=== PATIENT | male | born 1955 | race Caucasian/White ===

== ENCOUNTER → 2018-03-09 09:03 | Outpatient (CLI) | payer OTHER, SELFPAY ==
[2018-03-09 10:58] LABS: Add Manual Diff / Slide Review NO; Basophils Percent Auto 0.8 % (0-2); Eosinophils Percent Auto 2.4 % (2-4); Hematocrit 42.9 % (41-53); Hemoglobin 14.4 g/dL (13.5-17.5); Lymphocytes Percent Auto 23.3 % (25-40); Mean Corpuscular HGB Conc 33.5 % (30-36); Mean Corpuscular Hemoglobin 28.5 PG (26-34); Mean Corpuscular Volume 84.9 fL (80-100); Monocytes Percent Auto 10.5 % (3-14); Neutrophils Absolute Auto 4900 /uL (3000-5900); Platelet Count 269 X10^3/uL (150-400); Red Blood Cell Count 5.05 X10^6/uL (4.5-5.9); Red Cell Distribution Width 13.9 % (11.6-14.8); White Blood Cell Count 7.7 X10^3/uL (4.5-11.0)
[2018-03-09 12:14] LABS: HEMOLYSIS < 15 (0-50); Prostate Specific Antigen Scrn 1.83 ng/mL (0.1-4.0)
[2018-03-09 12:25] LABS: TSH w/ Reflex to FT4 4.41 uIU/mL (0.47-4.68)
[2018-03-09 12:27] LABS: Alanine Aminotransferase 49 IU/L (21-72); Albumin 4.5 g/dL (3.5-5.0); Albumin Globulin Ratio 1.5 (1.0-2.8); Alkaline Phosphatase 80 U/L (38-126); Aspartate Aminotransferase 43 IU/L (17-59); BUN Creatinine Ratio 12.7 (6-22); Bilirubin Total 0.5 mg/dL (0.2-1.3); Blood Urea Nitrogen 14 mg/dL (9-20); Calcium 9.1 mg/dL (8.4-10.2); Carbon Dioxide 25 mmol/L (22-32); Chloride 105 mmol/L (98-107); Cholesterol 209 mg/dL (140-199); Estimated Glomerular Filt Rate > 60.0 mL/min (>60); Globulin 3.1 g/dL (1.7-4.1); Glucose 101 mg/dL (80-110); HDL Cholesterol 32 mg/dL (40-60); LDL Cholesterol Calculated 131 mg/dL (<100); Potassium 4.2 mmol/L (3.4-5.1); Sodium 144 mmol/L (137-145); Total Protein 7.6 g/dL (6.3-8.2); Triglycerides 231 mg/dL (35-150)
== END ==
PROVIDERS: PCP Internal Medicine; Visit Provider Internal Medicine
DX: E66.9 Obesity, unspecified (principal); Z00.01 Encounter for general adult medical examination with abnormal findings
CPT/HCPCS: 36415; 80053; 80061; 84443; 85025; G0103

== ENCOUNTER → 2018-10-07 14:30 | Outpatient (CLI) | payer OTHER, SELFPAY ==
[2018-10-07 16:28] LABS: Cholesterol 214 mg/dL (140-199); HDL Cholesterol 36 mg/dL (40-60); LDL Cholesterol Calculated 131 mg/dL (<100); Triglycerides 234 mg/dL (35-150); Uric Acid 8.3 mg/dL (3.5-8.5)
== END ==
PROVIDERS: PCP Internal Medicine; Visit Provider Internal Medicine
DX: E78.00 Pure hypercholesterolemia, unspecified (principal); M10.00 Idiopathic gout, unspecified site
CPT/HCPCS: 36415; 80061; 84550

== ENCOUNTER 2020-04-06 17:25 | Emergency (ER) | payer MEDICARE, OTHER, SELFPAY ==
[2020-04-06] VITALS (7 sets, daily range): BP systolic 126–172; BP diastolic 62–95; PULSE 72–83; RESP 14–18; TEMP 36.6; O2SAT 91–97; BMI 32.1
--- NOTE | 2020-04-06 18:09 | ED.BACK ---
HPI - Back Pain/Injury General Chief Complaint: Back Pain/Injury Stated Complaint: Back pain, not able to stand Time Seen by Provider: 04/06/20 17:55 Source: patient Limitations: no limitations History of Present Illness HPI Narrative: Patient brought here by his neighbor. Family is out of town. Onset of right lower back pain started 5 days ago. Patient states he was doing yd work and was working and twisted his back and felt a pop. In the right lower back. Denies denies any radiating pain to the abdomen chest or the legs. No loss of bowel or bladder control. No numbness tingling weakness to legs or feet. History of lower back problems in the 1980s. No recent MRIs or surgeries never had surgeries on his back. Denies any history aortic dissection or aneurysms in the chest or abdomen. 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 Two days ago tried having a bowel movement but was too painful. Has been able to urinate. No saddle paresthesia. Today he felt spasm in right lower back again and he lowered himself to the ground and states that he did pass out. He did awake and fortunately his neighbor came over to visit defined him on the ground, he was awake. He got up and walked to the car with his neighbor to drive here. He is able to walk. Pain does not radiate to his legs or groin. No to his abdomen or chest or upper back. No headache. Related Data Previous Rx's Medication Instructions Recorded cyclobenzaprine 10 mg PO TID PRN #10 tab 04/06/20 hydrocodone-acetaminophen [[place]] 1 tab PO Q8H PRN #14 tab 04/06/20 Allergies Allergy/AdvReac Type Severity Reaction Status Date / Time No Known Drug Allergies Allergy Verified 04/06/20 17:42 Review of Systems Review of Systems Narrative: GENERAL: Denies chills, fatigue, malaise, fever, sweats. HEENT: Denies sinus pain, ear pain, sore throat, difficulty swallowing RESPIRATORY: Denies dyspnea, cough CARDIOVASCULAR: Denies chest pain, palpitations, edema, GASTROINTESTINAL: Denies nausea, vomiting, abdominal pain, diarrhea, constipation, melena. : Denies dysuria, frequency, hematuria MUSCULOSKELETAL: Complains of muscle pain. Denies any bony pain. SKIN: Denies rash, skin lesions NEUROLOGIC: Denies weakness, headache, numbness, change in speech, confusion PSYCHIATRIC: No SI or HI or hallucinations ROS Unobtainable: All systems reviewed & are unremarkable except as noted in HPI and below Patient History Social History Smoking Status: Never smoker Smoking Status: Never smoker alcohol intake frequency: 0-2 drinks per day Substance Use Type: does not use Exam Narrative Exam Narrative: GENERAL: patient appears stated age. Well-nourished, well-developed patient, in no distress, not toxic not dyspneic HEAD: Normocephalic. EYES: Pupils equal round and reactive. No scleral icterus. No injection no discharge ENT: Mucous membranes moist. No drooling no tongue elevation no trismus no malocclusion NECK: Trachea midline. Non tender CARDIOVASCULAR: Regular rate and rhythm without murmurs, gallops, or rubs. Strong bilateral femoral pulses as well as pedal pulses. Legs are warm soft and pink. RESPIRATORY: Clear to auscultation. Breath sounds equal bilaterally. No wheezes, rales, or rhonchi. GASTROINTESTINAL: Abdomen soft, non-tender, nondistended. Bowel sounds present no peritoneal signs. EXTREMITIES: No gross deformities. Legs warm soft and pink. BACK: Reproducible right paralumbar muscle tenderness and spasm. No no no midline tenderness or step-off. Limited range of motion in supine position due to pain at this time. Able to do straight leg raise and has pain at 60? with straining of the right knee. Unable to ambulate patient this time due to pain. Prefers to lay on his left side with hips and knees flexed NEURO: AOx4. Strong bilateral patellar reflexes as well as ankle flexion extension. Light touch intact to feet and toes. Wiggles toes. SKIN: Warm and dry PSYCH: Not anxious, is cooperative Initial Vital Signs Initial Vital Signs: Vital Signs Temperature 97.8 F 04/06/20 17:37 Pulse Rate 83 04/06/20 17:37 Respiratory Rate 18 04/06/20 17:37 Blood Pressure 172/95 H 04/06/20 17:37 Pulse Oximetry 97 04/06/20 17:37 Course Course Course Narrative: Pain control attained here. Blood pressure improved. Orders Ordered: ED Orders 04/06/20 19:39 CT abdomen pelvis wo con Stat Discontinued Medications Hydrocodone Bitart/Acetaminophen (Vicodin 5/325 Prepack) 1 bottle MISC SEEINSTR ONE Stop: 04/06/20 21:19 Last Admin: 04/06/20 21:21 Dose: 1 bottle Documented by: CAROLYNE Diazepam (Valium) 5 mg PO NOW ONE Stop: 04/06/20 19:14 Last Admin: 04/06/20 19:17 Dose: 5 mg Documented by: CAROLYNE Hydromorphone HCl (Dilaudid) 1 mg IM NOW ONE Stop: 04/06/20 18:09 Last Admin: 04/06/20 18:50 Dose: 1 mg Documented by: CAROLYNE Ketorolac Tromethamine (Toradol) 30 mg IM NOW ONE Stop: 04/06/20 18:10 Last Admin: 04/06/20 18:51 Dose: Not Given Documented by: CAROLYNE Ketorolac Tromethamine (Toradol) 30 mg IM NOW ONE Stop: 04/06/20 20:35 Last Admin: 04/06/20 20:37 Dose: 30 mg Documented by: CAROLYNE Ondansetron HCl (Zofran Odt) 4 mg SL NOW ONE Stop: 04/06/20 18:09 Last Admin: 04/06/20 18:50 Dose: 4 mg Documented by: CAROLYNE Reevaluation(s) Reevaluation #1: Pain improving. Blood pressure 127/62 it has improved with pain as well. Patient has a experienced truck driver. He desires discharge home. Reviewed CT scan results with him. And follow-up as well. And no operating machinery Time: 21:15 Vital Signs Vital signs: Vital Signs - 8 hr 04/06/20 17:37 04/06/20 19:20 04/06/20 19:21 Temperature 97.8 F Pulse Rate 83 77 Respiratory Rate 18 Blood Pressure 172/95 H 135/87 Pulse Oximetry 97 94 04/06/20 19:30 04/06/20 20:00 04/06/20 20:41 Temperature Pulse Rate 75 75 72 Respiratory Rate 14 Blood Pressure 138/77 126/64 137/73 Pulse Oximetry 91 93 93 04/06/20 21:00 Temperature Pulse Rate 79 Respiratory Rate Blood Pressure 127/62 Pulse Oximetry 95 MDM - Back Pain/Injury Differential Diagnosis Differential diagnosis: Likely lumbar radiculopathy, sciatica, strain of lumbar region, AAA and other (Renal stone/muscle spasm/muscle strain) Imaging Data CT scan - abdomen/pelvis: Radiologist's Impression: [address] [address] [address] Scan Report Signed Patient: Alexander Bobby [facility]#: [id number] : 4Acct:[id number] Age/Sex: 64 / MDate of Service: 04/06/20 Loc: ED Accession Number: [id number] Procedure: CT abdomen pelvis wo con Ordering Provider: Akbar Calhoun MD PROCEDURE: CT ABDOMEN PELVIS WO CON INDICATIONS: Right flank pain/back pain TECHNIQUE: Noncontrast 5 mm thick sections acquired from the diaphragms to the symphysis. 5 mm coronal and sagittal reformats were then performed. For radiation dose reduction, the following was used: automated exposure control, adjustment of mA and/or kV according to patient size. COMPARISON: None. FINDINGS: Image quality: Excellent. ABDOMEN: Lung bases: Lung bases are clear. Small calcified granuloma. Small calcified left infrahilar lymph node. No pleural effusion. Minimal bibasilar atelectasis. Heart size is normal. Solid organs: Liver is normal in size. Hepatic steatosis. Gallbladder is unremarkable. Pancreas is normal in contours. Spleen is normal in size. Small calcified splenic granuloma. No adrenal nodules. Kidneys are normal in size, without hydronephrosis or nephrolithiasis. Small cortical hypodensity in the right kidneys which are too small to further characterize. Peritoneum and bowel: Unenhanced bowel loops demonstrate normal wall thickness and caliber. Diverticulosis. Normal appendix. No free fluid or air. Nodes and vessels: No retroperitoneal or mesenteric adenopathy by size criteria. Aorta and inferior vena cava are normal in caliber. Miscellaneous: No ventral hernias. Mild stranding in the subcutaneous lower abdominal wall. PELVIS: Genitourinary: Bladder wall thickness is normal. Prostatomegaly. Median lobe hypertrophy. Prosthetic calcifications. Miscellaneous: No inguinal hernias or adenopathy. Bones: No suspicious bony lesions. Multilevel DDD. No vertebral body compression fractures. IMPRESSION: 1. No kidney stones. No hydronephrosis. 2. No acute inflammatory process identified. No free fluid. 3. Diverticulosis without diverticulitis. 4. Prior granulomatous process. 5. Hepatic steatosis. Dictated by: Neil Tripathi M.D. on 04/06/2020 at 20:29 Approved by: Neil Tripathi M.D. on 04/06/2020 at 20:35 MDM Narrative Medical decision making narrative: No labs indicated this time. Mechanism of injury noted and clinically relevant. CT scan ordered to also evaluate for possible kidney stone, was able to visualize aorta as well. Appropriate for discharge home. No neuro complaints. Discharge Plan Departure Patient Disposition: Home Clinical Impression: Strain of lumbar region Qualifiers: Encounter type: initial encounter Qualified Code(s): S39.012A - Strain of muscle, fascia and tendon of lower back, initial encounter Discharge Date/Time: 04/06/20 21:25 Instructions: DI for Back Spasm, DI for Back Strain or Sprain Activity Restrictions/Additional Instructions: No driving or operating machinery until seen by family doctor. Will need to schedule MRI of the lower back with family doctor. Return if worse or if any questions or concerns or if any numbness tingling or weakness to the legs or feet. Prescriptions: New cyclobenzaprine 10 mg tablet 10 mg PO TID PRN (Reason: muscle spasm) Qty: 10 RF: 0 hydrocodone-acetaminophen [[place]] 7.5-325 mg tablet 1 tab PO Q8H PRN (Reason: pain) Qty: 14 RF: 0 Referrals: Kain Contreras MD [Primary Care Provider] -
[2020-04-06] MEDS: ONDANSETRON 4 MG ODT SL (18:50)
[2020-04-06] MEDS: HYDROMORPHONE 1 MG INJ IM (18:50)
[2020-04-06] MEDS: diazePAM 5 MG TABLET PO (19:17)
--- NOTE | 2020-04-06 19:39 | DI.CT.S_ITS ---
PROCEDURE: CT ABDOMEN PELVIS WO CON INDICATIONS: Right flank pain/back pain TECHNIQUE: Noncontrast 5 mm thick sections acquired from the diaphragms to the symphysis. 5 mm coronal and sagittal reformats were then performed. For radiation dose reduction, the following was used: automated exposure control, adjustment of mA and/or kV according to patient size. COMPARISON: None. FINDINGS: Image quality: Excellent. ABDOMEN: Lung bases: Lung bases are clear. Small calcified granuloma. Small calcified left infrahilar lymph node. No pleural effusion. Minimal bibasilar atelectasis. Heart size is normal. Solid organs: Liver is normal in size. Hepatic steatosis. Gallbladder is unremarkable. Pancreas is normal in contours. Spleen is normal in size. Small calcified splenic granuloma. No adrenal nodules. Kidneys are normal in size, without hydronephrosis or nephrolithiasis. Small cortical hypodensity in the right kidneys which are too small to further characterize. Peritoneum and bowel: Unenhanced bowel loops demonstrate normal wall thickness and caliber. Diverticulosis. Normal appendix. No free fluid or air. Nodes and vessels: No retroperitoneal or mesenteric adenopathy by size criteria. Aorta and inferior vena cava are normal in caliber. Miscellaneous: No ventral hernias. Mild stranding in the subcutaneous lower abdominal wall. PELVIS: Genitourinary: Bladder wall thickness is normal. Prostatomegaly. Median lobe hypertrophy. Prosthetic calcifications. Miscellaneous: No inguinal hernias or adenopathy. Bones: No suspicious bony lesions. Multilevel DDD. No vertebral body compression fractures. IMPRESSION: 1. No kidney stones. No hydronephrosis. 2. No acute inflammatory process identified. No free fluid. 3. Diverticulosis without diverticulitis. 4. Prior granulomatous process. 5. Hepatic steatosis. Dictated by: Neil Tripathi M.D. on 04/06/2020 at 20:29 Approved by: Neil Tripathi M.D. on 04/06/2020 at 20:35
[2020-04-06] MEDS: KETOROLAC 60 MG/2 ML VIAL 30 MG IM (20:37)
[2020-04-06] MEDS: HYDROCODONE/ACET 5/325 PREPACK 1 BOTTLE MISC (21:21)
== END 2020-04-06 21:25 | disposition home or self-care (01) ==
PROVIDERS: Emergency Provider Emergency Medicine; PCP Internal Medicine
DX: S39.012A Strain of muscle, fascia and tendon of lower back, initial encounter (principal); M62.830 Muscle spasm of back
CPT/HCPCS: 74176; 96372; 99284; J1170; J1885

== ENCOUNTER → 2020-05-13 10:33 | Outpatient (CLI) | payer MEDICARE, OTHER, SELFPAY ==
[2020-05-13 12:50] LABS: Add Manual Diff / Slide Review NO; Basophils Absolute Auto 100 /uL (0-100); Basophils Percent Auto 0.8 % (0-2); Eosinophils Absolute Auto 100 /uL (0-450); Eosinophils Percent Auto 1.5 % (2-4); Hematocrit 43.7 % (41-53); Hemoglobin 14.3 g/dL (13.5-17.5); Lymphocytes Absolute Auto 1800 /uL (1100-4500); Lymphocytes Percent Auto 22.8 % (25-40); Mean Corpuscular HGB Conc 32.8 % (30-36); Mean Corpuscular Hemoglobin 28.4 PG (26-34); Mean Corpuscular Volume 86.4 fL (80-100); Monocytes Absolute Auto 600 /uL (0-900); Monocytes Percent Auto 8.1 % (3-14); Neutrophils Absolute Auto 5300 /uL (1500-7000); Neutrophils Percent Auto 66.8 % (50-75); Platelet Count 248 X10^3/uL (150-400); Red Blood Cell Count 5.06 X10^6/uL (4.5-5.9); Red Cell Distribution Width 14.4 % (11.6-14.8); White Blood Cell Count 7.9 X10^3/uL (4.5-11.0)
[2020-05-13 13:02] LABS: Alanine Aminotransferase 59 IU/L (<50); Albumin 4.5 g/dL (3.5-5.0); Albumin Globulin Ratio 1.5 (1.0-2.8); Alkaline Phosphatase 79 U/L (38-126); Aspartate Aminotransferase 51 IU/L (17-59); BUN Creatinine Ratio 19.4 (6-22); Bilirubin Total 0.9 mg/dL (0.2-1.3); Blood Urea Nitrogen 18 mg/dL (9-20); Calcium 9.4 mg/dL (8.4-10.2); Carbon Dioxide 27 mmol/L (22-32); Chloride 104 mmol/L (98-107); Cholesterol 264 mg/dL (140-199); Estimated Glomerular Filt Rate > 60.0 mL/min (>60); Globulin 3.1 g/dL (1.7-4.1); Glucose 187 mg/dL (80-110); HDL Cholesterol 41 mg/dL (40-60); HEMOLYSIS < 15 (0-50); LDL Cholesterol Calculated 177 mg/dL (<100); Sodium 137 mmol/L (137-145); Total Protein 7.6 g/dL (6.3-8.2); Triglycerides 231 mg/dL (35-150); Uric Acid 9.2 mg/dL (3.5-8.5)
[2020-05-13 13:32] LABS: Prostate Specific Antigen Scrn 1.96 ng/mL (0.1-4.0)
== END ==
PROVIDERS: PCP Internal Medicine; Referring Provider Internal Medicine; Visit Provider Internal Medicine
DX: M15.0 Primary generalized (osteo)arthritis (principal); E78.2 Mixed hyperlipidemia; M10.00 Idiopathic gout, unspecified site; M54.5 Low back pain; Z12.5 Encounter for screening for malignant neoplasm of prostate
CPT/HCPCS: 36415; 80053; 80061; 84550; 85025; G0103

== ENCOUNTER → 2020-06-21 10:33 | Outpatient (CLI) | payer MEDICARE, OTHER, SELFPAY ==
[2020-06-21 11:48] LABS: Add Manual Diff / Slide Review NO; Basophils Absolute Auto 100 /uL (0-100); Basophils Percent Auto 0.8 % (0-2); Eosinophils Absolute Auto 100 /uL (0-450); Eosinophils Percent Auto 1.4 % (2-4); Hematocrit 44.8 % (41-53); Lymphocytes Absolute Auto 2100 /uL (1100-4500); Lymphocytes Percent Auto 26.3 % (25-40); Mean Corpuscular HGB Conc 33.6 % (30-36); Mean Corpuscular Hemoglobin 28.8 PG (26-34); Mean Corpuscular Volume 85.7 fL (80-100); Monocytes Absolute Auto 700 /uL (0-900); Monocytes Percent Auto 8.7 % (3-14); Neutrophils Absolute Auto 4900 /uL (1500-7000); Neutrophils Percent Auto 62.8 % (50-75); Platelet Count 255 X10^3/uL (150-400); Red Blood Cell Count 5.22 X10^6/uL (4.5-5.9); Red Cell Distribution Width 14.5 % (11.6-14.8); White Blood Cell Count 7.8 X10^3/uL (4.5-11.0)
[2020-06-21 11:58] LABS: Hemoglobin A1C% w Est Avg Glu 6.1 % (4.0-6.0)
[2020-06-21 12:06] LABS: BUN Creatinine Ratio 15.1 (6-22); Blood Urea Nitrogen 13 mg/dL (9-20); Calcium 9.4 mg/dL (8.4-10.2); Carbon Dioxide 27 mmol/L (22-32); Chloride 104 mmol/L (98-107); Estimated Glomerular Filt Rate > 60.0 mL/min (>60); Glucose 117 mg/dL (80-110); HEMOLYSIS < 15 (0-50); Potassium 4.1 mmol/L (3.4-5.1); Sodium 138 mmol/L (137-145)
== END ==
PROVIDERS: PCP Internal Medicine; Referring Provider Orthopaedic Surgery; Visit Provider Orthopaedic Surgery
DX: Z01.818 Encounter for other preprocedural examination (principal); Z01.812 Encounter for preprocedural laboratory examination; R73.9 Hyperglycemia, unspecified
CPT/HCPCS: 36415; 80048; 83036; 85025; 93005

== ENCOUNTER → 2020-08-12 10:02 | Outpatient (CLI) | payer MEDICARE, OTHER, SELFPAY ==
[2020-08-12 11:35] LABS: BUN Creatinine Ratio 15.5 (6-22); Blood Urea Nitrogen 15 mg/dL (9-20); Calcium 9.7 mg/dL (8.4-10.2); Carbon Dioxide 29 mmol/L (22-32); Chloride 102 mmol/L (98-107); Estimated Glomerular Filt Rate > 60.0 mL/min (>60); Glucose 124 mg/dL (80-110); HEMOLYSIS < 15 (0-50); Potassium 3.9 mmol/L (3.4-5.1); Sodium 138 mmol/L (137-145)
== END ==
PROVIDERS: PCP Internal Medicine; Referring Provider Specialist; Visit Provider Specialist
DX: R94.4 Abnormal results of kidney function studies (principal)
CPT/HCPCS: 36415; 80048

== ENCOUNTER → 2020-08-15 12:28 | Outpatient (CLI) | payer MEDICARE, OTHER, SELFPAY ==
--- NOTE | 2020-08-15 12:32 | DI.CT.S_ITS ---
PROCEDURE: CT ABDOMEN PELVIS WO/W CON INDICATIONS: hematuria TECHNIQUE: Optional 5 mm thick noncontrast images acquired from the diaphragm to the symphysis pubis. After the administration of intravenous contrast, 5 mm thick images acquired from the diaphragm to the symphysis pubis after a 10-minute delay. 2 mm thick coronal and sagittal reformats were then performed of the kidneys and ureters. For radiation dose reduction, the following was used: automated exposure control, adjustment of mA and/or kV according to patient size. COMPARISON: [facility], CT, CT ABDOMEN PELVIS WO CON, 04/06/2020, 20:00. FINDINGS: Image quality: Excellent. Lung bases: There are small calcified nodules redemonstrated within the lung bases consistent with sequelae of old granulomas disease. Mild dependent atelectasis is present in the right lower lobe. Heart size is normal. Urinary system: Kidneys demonstrate no nephrolithiasis or hydronephrosis. Minimal nonspecific perinephric stranding is redemonstrated. There is a small right renal cyst. There is normal bilateral renal enhancement. Renal calyces appear normal in morphology when filled with contrast without suspicious filling defects. Opacified portions of both ureters demonstrate normal caliber without filling defects. No calcified bladder stones. There is slight bladder wall thickening and trabeculation suggesting sequelae of chronic bladder outlet obstruction. There is moderate heterogeneous enlargement of the prostate. Other solid organs: Evaluation of the liver demonstrates no focal hepatic lesions. The gallbladder appears within normal limits without calcified gallstones. Biliary system is non-dilated. Pancreas enhances normally. No peripancreatic fat stranding or fluid collections. No pancreatic duct dilatation. The spleen is normal in size. Multiple splenic calcifications are redemonstrated consistent with sequelae of old granulomas disease. No adrenal nodules. Peritoneum and bowel: Bowel loops demonstrate normal wall thickness and caliber. The appendix is normal in appearance. There is colonic diverticulosis without acute diverticulitis. No free fluid or air. Nodes and vessels: No retroperitoneal or mesenteric adenopathy by size criteria. Aorta and inferior vena cava are normal in size. Abdominal wall: No ventral hernias. Pelvis: No pathologic free pelvic fluid. No inguinal hernias or adenopathy. Bones: No suspicious bony lesions. No vertebral body compression fractures. IMPRESSION: 1. No evidence of nephrolithiasis or suspicious filling defects within the renal collecting systems. 2. Slight bladder wall thickening and trabeculation suggesting sequelae of chronic bladder outlet obstruction. There is moderate heterogeneous enlargement of the prostate. 3. Colonic diverticulosis. Dictated by: Alexander Lawrence M.D. on 08/15/2020 at 14:01 Approved by: Alexander Lawrence M.D. on 08/15/2020 at 14:10
--- NOTE | 2020-08-15 12:32 | DI.US.S_ITS ---
PROCEDURE: US SCROTUM INDICATIONS: Abnormal exam TECHNIQUE: Real-time scanning was performed of the scrotum and testicles, with image documentation. Color and pulse Doppler interrogation was performed of both testicles. COMPARISON: None. FINDINGS: Right: Testicle is normal in size at 2.1 x 3.3 x 4.8 cm, and homogenous in echotexture. Epididymis is normal in overall size and morphology. No significant hydrocele or varicoceles. Overlying scrotal skin is normal in thickness. Left: Testicle is normal in size at 1.7 x 3.1 x 4.3 cm, and homogeneous in echotexture. Epididymis is normal in overall size and morphology. No significant hydrocele or varicoceles. Overlying scrotal skin is normal in thickness. There is a left at that intimal cyst at the head of the epididymis measuring only 4 mm in diameter. Doppler: Color and pulse Doppler demonstrate normal and symmetric arterial flow in both testicles. IMPRESSION: No sign of testicular torsion, or underlying orchitis or epididymitis. No suspicion for presence of testicular neoplasm. Dictated by: Vinny Ford M.D. on 08/15/2020 at 16:08 Approved by: Vinny Ford M.D. on 08/15/2020 at 16:10
== END ==
PROVIDERS: PCP Internal Medicine; Referring Provider Specialist; Visit Provider Specialist
DX: R31.9 Hematuria, unspecified (principal); R68.89 Other general symptoms and signs; N40.0 Benign prostatic hyperplasia without lower urinary tract symptoms; K57.90 Diverticulosis of intestine, part unspecified, without perforation or abscess without bleeding
CPT/HCPCS: 74178; 76870; Q9967

== ENCOUNTER → 2020-09-02 09:24 | Outpatient (CLI) | payer MEDICARE, OTHER, SELFPAY ==
[2020-09-02 13:17] LABS: COVID19 -Nasal RAPID Negative (Negative)
== END ==
PROVIDERS: PCP Internal Medicine; Visit Provider Surgery
DX: Z20.822 Contact with and (suspected) exposure to COVID-19 (principal)
CPT/HCPCS: 87635; C9803

== ENCOUNTER 2020-09-03 07:30 | Day surgery (SDC) | payer MEDICARE, OTHER, SELFPAY ==
[2020-09-03] VITALS (9 sets, daily range): BP systolic 87–133; BP diastolic 57–78; PULSE 70–86; RESP 12–20; TEMP 36.4–36.7; O2SAT 93–97; BMI 30.7
[2020-09-03] MEDS: SODIUM CHLORIDE 0.9% 1,000 ML 200 ML IV (07:49)
--- NOTE | 2020-09-03 08:17 | PM.HP.1 ---
History of Present Illness History of Present Illness Date Patient Seen: 09/03/20 Time Patient Seen: 08:17 Chief complaint: SCREENING COLONOSCOPY Narrative: This is a 64-year-old man here for follow-up colonoscopy. His last colonoscopy was 5 years ago, and he is getting them every 5 years due to family history. His father from colon cancer at age 55. He has had at least 1 polyp found on a prior scope, but nothing found on his most recent colonoscopy 5 years ago. He denies any new symptoms of melena, hematochezia, unexplained abdominal pain, unexplained weight loss. He says he is otherwise in good health, and recently had a knee replacement. ROS Thirteen system review is otherwise negative other than as mentioned below and in HPI. PE: GENERAL: Well groomed and cooperative. Appears stated age. Answers questions promptly and appropriately. Vital signs noted. HENT: Normocephalic, atraumatic. Hearing intact. EYES: Conjunctiva pink, sclera white, no periorbital swelling. CARDIOVASCULAR: Regular rate. No pedal edema. RESPIRATORY: Non-tachypneic, breathing comfortably on room air. GASTROINTESTINAL: Abdomen soft and non-distended GENITALURINARY: No flank tenderness. MUSCULOSKELETAL: Equal tone and mass bilaterally. SKIN: Warm, dry, soft, appropriate color for ethnicity. No other lesions, rashes, or wounds. NEURO: Alert and Oriented X 3. No gross sensory deficits, or cognitive issues. PSYCH: Appropriate affect and mood. Patient History Medical History (Updated 09/03/20 @ 08:18 by Veronica Rachel MD) BPH w urinary obs/LUTS Diverticulosis Family history of colon cancer Family history of prostate cancer Gout Hepatic steatosis History of lung cancer (~2009) Lung cancer Microscopic hematuria Surgical History History of knee replacement Family & Social History Family History Grandmother Cancer Grandfather Gout Brother Hearing impairment Kidney stone Social History: household members spouse Tobacco & Substance use: Smoking Status Never smoker alcohol intake current alcohol intake frequency holiday/special occasion Substance Use Type does not use Meds Home Medications and Allergies Home Medications Medication Instructions Recorded Confirmed Type acetaminophen 500 mg capsule 500 mg PO Q6H PRN 08/05/20 09/03/20 History allopurinol 300 mg tablet 300 mg PO DAILY 08/05/20 09/03/20 History atorvastatin 40 mg tablet 40 mg PO DAILY 08/05/20 09/03/20 History diclofenac sodium 75 mg 75 mg PO BID 08/05/20 09/03/20 History tablet,delayed release tamsulosin 0.4 mg capsule 0.4 mg PO BID cap 08/05/20 09/03/20 History Allergies Allergy/AdvReac Type Severity Reaction Status Date / Time No Known Drug Allergies Allergy Verified 09/03/20 07:49 Exam Vital Signs (past 8 hours): - 09/03/20 07:57 Temperature 97.7 F Pulse Rate 86 Respiratory Rate 14 Blood Pressure 133/78 Pulse Oximetry 95 Oxygen Delivery Method Room Air Assessment & Plan Assessment and plan (1) Family history of colon cancer in father: Status: Acute (2) Personal history of colonic polyps: Status: Acute Assessment & Plan narrative: Risks and benefits of screening colonoscopy and possible polypectomy were discussed with the patient including risk of bleeding, perforation, need for additional procedures, risks of anesthesia. The patient desires to proceed with the colonoscopy procedure. COVID-19 COVID-19 status: Negative Result date/Date tested (Pos, Neg/Pending): 09/02/20 Time Spent With Patient Time with patient: 15-24 minutes Quality MIPS - Admit Advanced Care Plan / Current Medications Measures: #47 ? Advanced Care Plan Clinician documentation instruction: document at admission. [] I confirmed that the patient's Advance Care Plan is present, code status is documented, or surrogate decision maker is listed in the patient?s medical record. [SATISFIES MIPS PERFORMANCE] If Yes, Stop Here [] The patient?s Advance Care plan is not present because: (select) [MIPS PERFORMANCE EXCEPTION/EXCLUSION] [] I confirmed today that the patient does not wish or was not able to name a surrogate decision maker or provide an Advance Care Plan. [] Hospice care is currently being provided or has been provided this calendar year [] I did NOT confirm today the presence of an Advance Care Plan or surrogate decision maker documented within the patient's medical record. [DOES NOT SATISFY MIPS PERFORMANCE] #130 - Documentation of Current Medications in the Medical Record Clinician documentation instruction: use macro the first time you see a patient. [] I have utilized all available immediate resources to obtain, update, or review the patient?s current medications. [SATISFIES MIPS PERFORMANCE] If Yes, Stop Here [] The patient is not eligible for medication reconciliation; the patient is in an emergent medical situation where delaying treatment would jeopardize the patient?s health. [MIPS PERFORMANCE EXCEPTION/EXCLUSION] [] I did NOT confirm, update or review the patient's current list of medications today. [DOES NOT SATISFY MIPS PERFORMANCE] MIPS - CL Central Venous Catheter Placement Measure: #76 ? Prevention of Central Venous Catheter (CVC) ? Related Bloodstream Infection Clinician documentation instruction: use macro every time you place a central line. [] All elements of Maximal Sterile Barrier Technique, including hand hygiene, skin prep, and sterile ultrasound technique (if used) were followed. [SATISFIES MIPS PERFORMANCE] If Yes, Stop Here [] If ?No?, the medical reason all elements were NOT used for medical reason [] (ex. emergent condition). [] Maximal Sterile Barrier Technique was not followed, no reason provided [DOES NOT SATISFY MIPS PERFORMANCE] MIPS - DC Heart Failure Measures: #5 - Heart Failure (HF): Angiotensin-Converting Enzyme (FABI) Inhibitor or Angiotensin Receptor Sophia (ARB) Therapy for Left Ventricular Systolic Dysfunction (LVSD) and #8 - Heart Failure (HF): Beta-Sophia Therapy for Left Ventricular Systolic Dysfunction (LVSD) Clinician documentation instruction: use macro at every CHF discharge. [] The patient has current or prior documentation of left ventricular ejection fraction (LVEF) less than 40%, or moderate or severely depressed left ventricular systolic function. Answer both: [SATISFIES MIPS PERFORMANCE] [] The patient was prescribed or already taking an Angiotensin-Converting Enzyme (FABI) Inhibitor, or Angiotensin Receptor Sophia (ARB). [] The patient was prescribed or already taking a beta-sophia. If Yes to Both, Stop Here [] Patient not prescribed/taking: [MIPS PERFORMANCE EXCEPTION/EXCLUSION] [] FABI or ARB for medical/patient/system reason(s) including [] (ex. allergy, intolerance, contraindication) [] Beta-sophia for medical/patient/system reason(s) including [] (ex. allergy, intolerance, contraindication) [] Patient not prescribed/taking: [DOES NOT SATISFY MIPS PERFORMANCE] [] FABI or ARB, no reason given [] Beta-sophia, no reason given
--- NOTE | 2020-09-03 08:19 | P.OP.ENDO_ITS ---
Operative Date/Time/Diagnoses Date of procedure: 09/03/20 Time of procedure: 08:19 Pre-op diagnosis: High risk family history, personal history colon polyps, due for surveillance colonoscopy Post-op diagnosis: other (No polyps found on today's exam) Procedure & Clinicians Study performed: Colonoscopy Procedural sedation performed by the endoscopist Same procedure as scheduled: Yes Indications: Personal history colon polyps, high risk family history for colon cancer Surgeon: Veronica Rachel Procedure Notes SCOAP/Timeout: Performed Procedure in detail: The patient was brought to the room and placed in left lateral decubitus position with all bony prominences padded. A time-out was performed and then the patient was given procedural sedation starting with 4 mg of Versed and 10 mcg of fentanyl. Total of 6 mg of Versed and 150 micro g of fentanyl were given for the entire procedure. Vitals were monitored throughout the procedure and remained stable. Once adequately sedated, the procedure was begun. A rectal exam was performed revealing no abnormalities. The colonoscope was then introduced to the rectum and advanced to the cecum in the usual fashion.]The cecum was identified by the appendiceal orifice, the mucosal tri- fold, and the ileocecal valve. The scope was then retracted while rotating side to side and examining each mucosal fold. Moderate diverticulosis was seen in the descending and sigmoid colon. No polyps or other abnormalities were found on today's exam. At the conclusion of the procedure retroflexion was performed and small grade 1-2 internal hemorrhoids without stigmata of bleeding were seen. The scope was then withdrawn from the rectum the procedure was concluded. The patient tolerated the procedure well and was transferred to the PACU in stable condition. Scope withdrawal time: 7 Sedation minutes: 17 Findings: diverticulosis Specimen(s): none sent Complications: none Impression: Moderate diverticulosis. No polyps found on today's exam Post-procedure Recommendations: Colonscopy in 5 years (Due to family history) Follow up: as needed Disposition: PACU
[2020-09-03] MEDS: fentaNYL 250 MCG/5 ML INJ IV (08:24)
[2020-09-03] MEDS: MIDAZOLAM 5 MG/5 ML VIAL IV (08:24)
--- NOTE | 2020-09-03 09:03 | SUR.PHASEI ---
Slow to wake, stable
--- NOTE | 2020-09-03 09:11 | SUR.PHASEI ---
Still sleepy, 02 placed back on now weaned off.
== END 2020-09-03 10:10 | disposition home or self-care (01) ==
PROVIDERS: PCP Internal Medicine; Referring Provider Internal Medicine; Visit Provider Surgery
PROC: 0DJD8ZZ Inspection of Lower Intestinal Tract, Via Natural or Artificial Opening Endoscopic (ICD-10-PCS; CPT 45378; principal; 2020-09-03 08:30)
DX: Z12.11 Encounter for screening for malignant neoplasm of colon (principal); Z80.0 Family history of malignant neoplasm of digestive organs; Z86.010 Personal history of colon polyps; K57.30 Diverticulosis of large intestine without perforation or abscess without bleeding; K64.0 First degree hemorrhoids
CPT/HCPCS: G0105; 99152; J2250; J3010

== ENCOUNTER 2020-12-08 11:28 | Emergency (ER) | payer MEDICARE, OTHER, SELFPAY ==
[2020-12-08] VITALS (7 sets, daily range): BP systolic 122–129; BP diastolic 67–96; PULSE 60–86; RESP 16; TEMP 36.7; O2SAT 95–98; BMI 31.9
--- NOTE | 2020-12-08 12:14 | DI.RAD.S_ITS ---
PROCEDURE: XR TIBIA FIBULA LT 2V INDICATIONS: injury TECHNIQUE: 2 views of the tibia and fibula were acquired. COMPARISON: None. FINDINGS: Bones: No fractures or dislocations. No suspicious bony lesions. Soft tissues: No suspicious soft tissue calcifications or masses. IMPRESSION: No evidence acute bony abnormality of the left tibia and fibula Dictated by: Judd Samaniego M.D. on 12/08/2020 at 12:09 Approved by: Judd Samaniego M.D. on 12/08/2020 at 12:10
[2020-12-08] MEDS: TET,DIPH,PERTUSS(ACELL),VAC/PF 0.5 ML SYRINGE IM (16:59)
--- NOTE | 2020-12-08 17:03 | ED.SKABFB ---
HPI - Skin/Abscess/Foreign Bdy General Chief complaint: Skin/Abscess/Foreign Body Stated complaint: Puncture Wound on Left Sharp, Swelling Time Seen by Provider: 12/08/20 17:03 Source: patient Mode of arrival: Ambulatory Limitations: no limitations History of Present Illness HPI narrative: This is a 64-year-old male comes emergency department with complaint puncture wound to his left sharp. Patient was using a pickaxe to chip away at some roots of a tree when he missed judged his placement and punctured his left calf. Patient states he had some swelling and had active bleeding from the sites for period of time. patient denies any numbness, tingling or weakness. He has had normal sensation throughout. He denies any blood thinners. Patient states his pain is fairly well controlled. He states his swelling has take medication for dyslipidemia as well as gout. his tetanus was updated here in the department. Related Data Home Medications Medication Instructions Recorded Confirmed acetaminophen 500 mg capsule 500 mg PO Q6H PRN 08/05/20 11/06/20 allopurinol 300 mg tablet 300 mg PO DAILY 08/05/20 11/06/20 atorvastatin 40 mg tablet 40 mg PO DAILY 08/05/20 11/06/20 diclofenac sodium 75 mg 75 mg PO BID 08/05/20 11/06/20 tablet,delayed release tamsulosin 0.4 mg capsule 0.4 mg PO BID cap 08/05/20 11/06/20 Previous Rx's Medication Instructions Recorded amoxicillin-pot clavulanate 1 tab PO Q12H #20 tab 12/08/20 [Augmentin] Allergies Allergy/AdvReac Type Severity Reaction Status Date / Time No Known Drug Allergies Allergy Verified 11/06/20 10:21 Review of Systems Review of Systems ROS Unobtainable: All systems reviewed & are unremarkable except as noted in HPI and below Patient History Medical History BPH w urinary obs/LUTS Diverticulosis Family history of colon cancer Family history of prostate cancer Gout Hepatic steatosis History of lung cancer (~2009) Lung cancer Microscopic hematuria Surgical History History of knee replacement Family History Grandmother Cancer Grandfather Gout Brother Hearing impairment Kidney stone Social History marital status: number of children: 3 household members: spouse Smoking Status: Never smoker alcohol intake: current caffeine: Yes Smoking Status: Never smoker alcohol intake frequency: holidays/special occasions only Substance Use Type: does not use Exam Narrative Exam Narrative: GENERAL: Alert and oriented x three, Well-nourished male in mild distress. HEENT: Head normocephalic, atraumatic, EOMI, pupils reactive, face symmetric, moist mucous membranes NECK: Supple, full range of motion CARDIOVASCULAR: Regular rate and rhythm without murmurs, rubs or gallops. RESPIRATORY: Breath sounds equal bilaterally, no wheezes rales or rhonchi. ABDOMEN: Soft, nontender. Normoactive bowel sounds all 4 quadrants. No guarding or rebound, rigidity, no mass : No CVA tenderness EXTREMITIES: Normal range of motion, no clubbing or edema. Neurovascularly intact. Patient has puncture wound of left calf that is 1 cm in size. no warmth, erythema, nontender to touch except very mildly at the opening. Unable to express any blood or fluid. Patient does not have any bony tenderness of the lower extremity. Normal sensation. 2+ dorsalis pedis. Patient has full flexion extension, dorsiflexion, plantar infection of his lower extremity. NEUROLOGICAL: Cranial nerves II through XII grossly intact. Moving all extremities SKIN: Warm, dry, no petechiae, no rashes or lesions Initial Vital Signs Initial Vital Signs: Vital Signs Temperature 98.0 F 12/08/20 12:06 Pulse Rate 85 12/08/20 12:06 Respiratory Rate 16 12/08/20 12:06 Blood Pressure 126/96 H 12/08/20 12:06 Pulse Oximetry 96 12/08/20 12:06 Course Orders Ordered: ED Orders 12/08/20 12:14 XR tibia fibula LT 2V Stat Discontinued Medications Amoxicillin/Clavulanate Potassium (Amoxicillin/Clav 875/125 Mg) 1 tab PO NOW ONE Stop: 12/08/20 17:16 Last Admin: 12/08/20 17:26 Dose: 1 tab Documented by: KBRYERS Diphtheria/Tetanus/Acell Pertussis (Tet,Diph,Pertuss(Acell),Vac/Pf 0.5 Ml Syringe) 0.5 ml IM .ONCE ONE Stop: 12/08/20 16:52 Last Admin: 12/08/20 16:59 Dose: 0.5 ml Documented by: SANDI Vital Signs Vital signs: Vital Signs - 8 hr 12/08/20 15:14 12/08/20 15:15 12/08/20 15:30 Pulse Rate 60 71 70 Blood Pressure 129/70 123/72 Pulse Oximetry 95 97 97 12/08/20 16:00 12/08/20 16:30 12/08/20 17:00 Pulse Rate 75 86 73 Blood Pressure 122/67 Pulse Oximetry 97 97 98 MDM - Skin/Abscess/Foreign Bdy Imaging Data Extremity x-ray #1: Radiologist's Impression: [address] [id number] ReportSigned Patient: Alexander Bobby MMR#: [id number]: 4Acct:[id number]/Sex: 64 / MDate of Service: 12/08/20Loc: EDAccession Number: [id number] Procedure: XR tibia fibula LT 2V Ordering Provider: Khushboo Ybarra D.O. PROCEDURE: XR TIBIA FIBULA LT 2V INDICATIONS: injury TECHNIQUE: 2 views of the tibia and fibula were acquired. COMPARISON: None. FINDINGS: Bones: No fractures or dislocations. No suspicious bony lesions. Soft tissues: No suspicious soft tissue calcifications or masses. IMPRESSION: No evidence acute bony abnormality of the left tibia and fibula Dictated by: Judd Samaniego M.D. on 12/08/2020 at 12:09 Approved by: Judd Samnaiego M.D. on 12/08/2020 at 12:[address] [facility] Narrative Medical decision making narrative: Wound and washed. Patient was started on oral antibiotics is likely a dirty wound from pickaxe working outdoors. Tetanus was updated. Patient does not have any continued bleeding here in the department with no other acute neurologic changes. X-ray does not show any signs of fracture or foreign body. Wound was left open so it can drain appropriately. All questions were answered. Patient had a compression bandage placed and was instructed to remove tomorrow morning and would likely not need additional compression branches are of bleeding. Return p Discharge Plan Departure Patient Disposition: Home Clinical Impression: Puncture wound of calf Instructions: DI for Puncture Wound Activity Restrictions/Additional Instructions: Follow up in a week for recheck. Keep compression bandage on overnight. Take antibiotics until gone. Prescription to [facility] in [place]. You may take tylenol and/or ibuprofen as needed. Wound Care: Keep wound(s) clean and dry. Wash daily with soap and water only. Do not use over the counter products (alcohol or peroxide)on the wounds unless instructed by a physician. If wound condition worsens (increased/expanding redness, developing fluid blisters, or worsening pain), either contact your doctor for an urgent re-assessment , or return to the Emergency Department. Return to the Emergency Department for any new or worsening symptoms. Return if fever greater than 100.4 Fahrenheit, increased swelling, increasing pain or worsening symptoms such as increased discharge or spreading redness, New numbness, tingling weakness of her extremity or other new or concerning symptoms. Prescriptions: New amoxicillin-pot clavulanate [Augmentin] 875-125 mg tablet 1 tab PO Q12H Qty: 20 RF: 0 No Action tamsulosin 0.4 mg capsule 0.4 mg PO BID RF: 0 atorvastatin 40 mg tablet 40 mg PO DAILY RF: 0 allopurinol 300 mg tablet 300 mg PO DAILY RF: 0 diclofenac sodium 75 mg tablet,delayed release (DR/EC) 75 mg PO BID RF: 0 acetaminophen 500 mg capsule 500 mg PO Q6H PRN (Reason: Pain) RF: 0 Referrals: Kain Contreras MD [Primary Care Provider] -
[2020-12-08] MEDS: AMOXICILLIN/CLAV 875/125 MG 1 TAB PO (17:26)
== END 2020-12-08 17:29 | disposition home or self-care (01) ==
PROVIDERS: Emergency Provider Emergency Medicine; PCP Internal Medicine
DX: S81.832A Puncture wound without foreign body, left lower leg, initial encounter (principal); W27.8XXA Contact with other nonpowered hand tool, initial encounter; Y93.H2 Activity, gardening and landscaping; Z23 Encounter for immunization
CPT/HCPCS: 73590; 90471; 99283; 90715

== ENCOUNTER → 2020-12-13 12:53 | Outpatient (CLI) | payer MEDICARE, OTHER, SELFPAY ==
[2020-12-13 14:21] LABS: Prostate Specific Antigen 2.18 ng/mL (0.10-4.00)
== END ==
PROVIDERS: PCP Internal Medicine; Referring Provider Specialist; Visit Provider Specialist
DX: N40.1 Benign prostatic hyperplasia with lower urinary tract symptoms (principal); N13.8 Other obstructive and reflux uropathy; Z80.42 Family history of malignant neoplasm of prostate
CPT/HCPCS: 36415; 84153

== ENCOUNTER → 2021-06-20 11:43 | Outpatient (CLI) | payer MEDICARE, OTHER, SELFPAY ==
[2021-06-20 13:42] LABS: Prostate Specific Antigen 2.21 ng/mL (0.10-4.00)
== END ==
PROVIDERS: PCP Internal Medicine; Referring Provider Specialist; Visit Provider Specialist
DX: R97.20 Elevated prostate specific antigen [PSA] (principal)
CPT/HCPCS: 36415; 84153

== ENCOUNTER → 2021-06-26 09:37 | Outpatient (CLI) | payer MEDICARE, OTHER, SELFPAY | PROVIDERS: PCP Internal Medicine; Visit Provider Specialist | DX: N39.0 Urinary tract infection, site not specified (principal) | CPT/HCPCS: 87086 ==

== ENCOUNTER → 2022-02-13 10:55 | Outpatient (CLI) | payer MEDICARE, OTHER, SELFPAY ==
[2022-02-13 12:34] LABS: Prostate Specific Antigen 2.56 ng/mL (0.10-4.00)
== END ==
PROVIDERS: PCP Internal Medicine; Referring Provider Specialist; Visit Provider Specialist
DX: R97.20 Elevated prostate specific antigen [PSA] (principal)
CPT/HCPCS: 36415; 84153

== ENCOUNTER → 2022-02-25 14:11 | Outpatient (CLI) | payer MEDICARE, OTHER, SELFPAY | PROVIDERS: PCP Internal Medicine; Visit Provider Specialist | DX: N13.8 Other obstructive and reflux uropathy (principal); N40.1 Benign prostatic hyperplasia with lower urinary tract symptoms; R31.29 Other microscopic hematuria | CPT/HCPCS: 51798; 81002; 87086; 99215 ==

== ENCOUNTER → 2022-03-17 09:08 | Outpatient (CLI) | payer MEDICARE, OTHER, SELFPAY ==
--- NOTE | 2022-03-17 09:14 | DI.RAD.S_ITS ---
PROCEDURE: XR HAND RT MIN 3V INDICATIONS: LESION OF BONE TECHNIQUE: 3 views of the hand(s) acquired. COMPARISON: None. FINDINGS: Bones: No fractures or dislocations. Carpal bones are normally aligned. No suspicious bony lesions. Distal interphalangeal joint space narrowing with marginal osteophytes noted. Normal bone mineralization present. Soft tissues: No suspicious soft tissue calcifications. IMPRESSION: DIP osteoarthritis. No evidence of intrinsic osseous lesion. Approved by: Kirk Ashley M.D. on 03/17/2022 at 14:00
[2022-03-17 10:50] LABS: Hemoglobin A1C% w Est Avg Glu 6.1 % (4.0-6.0)
[2022-03-17 10:58] LABS: Alanine Aminotransferase 28 IU/L (<50); Albumin 4.5 g/dL (3.5-5.0); Albumin Globulin Ratio 1.3 (1.0-2.8); Alkaline Phosphatase 79 U/L (38-126); Aspartate Aminotransferase 28 IU/L (17-59); BUN Creatinine Ratio 18.8 (6-22); Bilirubin Total 0.6 mg/dL (0.2-1.3); Blood Urea Nitrogen 18 mg/dL (9-20); Calcium 9.3 mg/dL (8.4-10.2); Carbon Dioxide 26 mmol/L (22-32); Chloride 100 mmol/L (98-107); Estimated Glomerular Filt Rate > 60 mL/min (>60); Globulin 3.4 g/dL (1.7-4.1); Glucose 98 mg/dL (80-110); HEMOLYSIS < 15 (0-50); Sodium 137 mmol/L (137-145); Total Protein 7.9 g/dL (6.3-8.2)
[2022-03-17 11:52] LABS: Hep C Virus Ab w/Reflex Quant NEGATIVE s/c (NEGATIVE)
[2022-03-17 14:52] LABS: Creatinine Urine Random 60.6 mg/dL
[2022-03-17 15:06] LABS: Microalbumin Urine Random < 0.6 mg/dL (0-1.6)
[2022-03-19 12:08] LABS: Cholesterol, Total 208 mg/dL (100-199); HDL-Cholesterol 41 mg/dL (>39); HDL-Particle (Total) 31.5 umol/L (>=30.5); LDL Particle 1536 nmol/L (<1000); LDL Size 20.4 nm (>20.5); LDL-Cholsterol 128 mg/dL (0-99); LP-IR Score 96 (<=45); Small LDL- Particle 831 nmol/L (<=527); Triglycerides 221 mg/dL (0-149)
== END ==
PROVIDERS: PCP Internal Medicine; Referring Provider Internal Medicine; Visit Provider Internal Medicine
DX: M19.042 Primary osteoarthritis, left hand (principal); M89.9 Disorder of bone, unspecified; E78.2 Mixed hyperlipidemia; E11.9 Type 2 diabetes mellitus without complications; Z11.59 Encounter for screening for other viral diseases
CPT/HCPCS: 36415; 73130; 80053; 80061; 82043; 82570; 83036; 83704; 86803

== ENCOUNTER → 2022-06-22 16:41 | Outpatient (CLI) | payer MEDICARE, OTHER, SELFPAY ==
[2022-06-22 19:22] LABS: Prostate Specific Antigen 2.99 ng/mL (0.10-4.00)
== END ==
PROVIDERS: PCP Internal Medicine; Referring Provider Specialist; Visit Provider Specialist
DX: N40.1 Benign prostatic hyperplasia with lower urinary tract symptoms (principal); N13.8 Other obstructive and reflux uropathy
CPT/HCPCS: 36415; 84153

== ENCOUNTER → 2022-06-25 09:07 | Outpatient (CLI) | payer MEDICARE, OTHER, SELFPAY ==
[2022-06-25 12:51] LABS: Appearance Urine UA CLEAR; Bilirubin Urine UA NEGATIVE (NEGATIVE); Color Urine UA YELLOW; Glucose Urine UA NEGATIVE (Negative); Ketones Urine UA NEGATIVE (NEGATIVE); Leukocyte Esterase Urine UA 1+ (NEGATIVE); Nitrite Urine UA NEGATIVE (Negative); Occult Blood Urine UA 2+ (Negative); Protein Urine UA NEGATIVE (Negative); Urobilinogen Urine UA 0.2 E.U./dL (0.2); pH Urine UA 5.5 (4.5-8.0)
[2022-06-25 13:21] LABS: Bacteria Urine None Seen; Culture Indicated Urine Specimen Cultured; RBC Urine 1-5/HPF (0-5/HPF); Squamous Epithelial Cell Urine 0-1 /HPF (0-5/HPF); WBC Urine 1-5/HPF (0-5/HPF)
== END ==
PROVIDERS: PCP Internal Medicine; Visit Provider Specialist
DX: N40.1 Benign prostatic hyperplasia with lower urinary tract symptoms (principal); N13.8 Other obstructive and reflux uropathy; R31.29 Other microscopic hematuria
CPT/HCPCS: 51798; 52000; 76872; 81001; 81002; 87086; 99215

== ENCOUNTER → 2022-12-14 10:01 | Outpatient (CLI) | payer MEDICARE, OTHER, SELFPAY ==
[2022-12-14 12:42] LABS: Prostate Specific Antigen 1.89 ng/mL (0.10-4.00)
== END ==
PROVIDERS: PCP Internal Medicine; Referring Provider Specialist; Visit Provider Specialist
DX: N40.1 Benign prostatic hyperplasia with lower urinary tract symptoms (principal); N13.8 Other obstructive and reflux uropathy; Z80.42 Family history of malignant neoplasm of prostate
CPT/HCPCS: 36415; 84153

== ENCOUNTER → 2023-11-23 15:29 | Outpatient (CLI) | payer MEDICARE, OTHER, SELFPAY ==
[2023-11-23 17:16] LABS: Add Manual Diff / Slide Review NO; Basophils Absolute Auto 0 /uL (0-100); Basophils Percent Auto 0.6 % (0-2); Eosinophils Absolute Auto 200 /uL (0-450); Hematocrit 41.6 % (41-53); Hemoglobin 14.1 g/dL (13.5-17.5); Lymphocytes Absolute Auto 2300 /uL (1100-4500); Lymphocytes Percent Auto 27.1 % (25-40); Mean Corpuscular HGB Conc 33.8 % (30-36); Mean Corpuscular Hemoglobin 29.5 PG (26-34); Mean Corpuscular Volume 87.3 fL (80-100); Monocytes Absolute Auto 700 /uL (0-900); Monocytes Percent Auto 8.3 % (3-14); Neutrophils Absolute Auto 5200 /uL (1500-7000); Platelet Count 244 X10^3/uL (150-400); Red Blood Cell Count 4.77 X10^6/uL (4.5-5.9); Red Cell Distribution Width 13.6 % (11.6-14.8); White Blood Cell Count 8.3 X10^3/uL (4.5-11.0)
[2023-11-23 17:19] LABS: Hemoglobin A1C% w Est Avg Glu 6.5 % (4.0-6.0)
[2023-11-23 17:54] LABS: Alanine Aminotransferase 41 IU/L (<50); Albumin 4.5 g/dL (3.5-5.0); Albumin Globulin Ratio 1.6 (1.0-2.8); Alkaline Phosphatase 98 U/L (38-126); Aspartate Aminotransferase 45 IU/L (17-59); BUN Creatinine Ratio 12.2 (6-22); Bilirubin Total 0.6 mg/dL (0.2-1.3); Blood Urea Nitrogen 12 mg/dL (9-20); Calcium 8.9 mg/dL (8.4-10.2); Carbon Dioxide 24 mmol/L (22-32); Chloride 107 mmol/L (98-107); Cholesterol 179 mg/dL (140-199); Estimated Glomerular Filt Rate > 60 mL/min (>60); Globulin 2.9 g/dL (1.7-4.1); Glucose 96 mg/dL (80-110); HDL Cholesterol 50 mg/dL (40-60); HEMOLYSIS < 15 (0-50); LDL Cholesterol Calculated 109 mg/dL (<100); Potassium 3.8 mmol/L (3.4-5.1); Sodium 138 mmol/L (137-145); Total Protein 7.4 g/dL (6.3-8.2); Triglycerides 98 mg/dL (35-150)
[2023-11-23 18:24] LABS: TSH w/ Reflex to FT4 3.88 uIU/mL (0.47-4.68)
[2023-11-25 04:10] LABS: Apolipoprotein B 79 mg/dL (<90)
== END ==
PROVIDERS: PCP Family Medicine; Referring Provider Family Medicine; Visit Provider Family Medicine
DX: R31.29 Other microscopic hematuria (principal); N13.8 Other obstructive and reflux uropathy; R73.03 Prediabetes; E78.5 Hyperlipidemia, unspecified; N40.1 Benign prostatic hyperplasia with lower urinary tract symptoms
CPT/HCPCS: 36415; 80053; 80061; 82172; 83036; 84443; 85025

== ENCOUNTER 2024-04-04 08:20 | Day surgery (SDC) | payer MEDICARE, OTHER, SELFPAY ==
[2024-04-04 08:48] VITALS: BP 123/75; PULSE 70; RESP 16; TEMP 36.2; O2SAT 94
--- NOTE | 2024-04-04 08:52 | P.HP_ITS ---
History of Present Illness History of Present Illness Date Patient Seen: 04/04/24 Time Patient Seen: 08:52 Chief complaint: Screening Colonoscopy Narrative: Alexander is a 68-year-old man here for colonoscopy. He has a family history of colon cancer. He has had several colonoscopies in the past but has never had polyps removed. His last colonoscopy was with Dr. Martinez in 2020. [facility] Medical History (Updated 04/04/24 @ 08:53 by Tres Moreno MD) Wears glasses Fractures Measles (~1961) Chicken pox (~1959) Hyperlipidemia History of lung cancer (~2009) Family history of colon cancer Hepatic steatosis Diverticulosis Microscopic hematuria BPH w urinary obs/LUTS Gout Lung cancer Surgical History (Updated 11/21/23 @ 21:39 by Belinda Garcia) Anesthesia History of knee replacement Family History (Updated 11/21/23 @ 21:40 by Belinda Garcia) Grandmother Cancer Grandfather Gout Brother Hearing impairment Kidney stone Father Cancer Mother Mental health problem Social History marital status: number of children: 3 household members: spouse Smoking Status: Never smoker alcohol intake: current caffeine: Yes Meds Home Medications and Allergies Home Medications Medication Instructions Recorded Confirmed Type allopurinol 300 mg tablet 300 mg PO DAILY #90 tabs 10/07/23 04/04/24 Rx atorvastatin 40 mg tablet 40 mg PO DAILY #90 tabs 10/07/23 04/04/24 Rx colchicine 0.6 mg tablet 0.6 mg PO DAILY #60 tabs 10/07/23 04/04/24 Rx tadalafil 5 mg tablet 5 mg PO DAILY #90 tabs 10/07/23 04/04/24 Rx ciclopirox 8 % topical solution 1 applic topical BEDTIME 12 weeks 12/15/23 12/15/23 Rx #6.6 mL sodium,potassium,mag sulfates 17.5 See Rx Instructions PO .COMPLEX 02/22/24 Rx gram-3.13 gram-1.6 gram oral soln #354 mL (Suprep Bowel Prep Kit) Allergies Allergy/AdvReac Type Severity Reaction Status Date / Time Hay Fever Allergy Unknown Agitated Uncoded 12/15/23 11:04 Exam Vital Signs (past 8 hours): - 04/04/24 08:48 Temperature 97.2 F L Pulse Rate 70 Respiratory Rate 16 Blood Pressure 123/75 Pulse Oximetry 94 Oxygen Delivery Method Room Air Oxygen Delivery Method Room Air Const General: No acute distress Resp Effort & Inspection: normal respiratory effort Assessment & Plan Assessment and plan (1) Family history of colon cancer: Status: Acute Plan We reviewed the risks and benefits of colonoscopy and he would like to proceed Time-Based Coding :: [TOTAL MINUTES] spent with patient and on the chart (including review of chart, obtaining history, exam, reviewing outside data, placing orders, documenting exam and treatment plan, and counseling patient) on [DATE].
--- NOTE | 2024-04-04 09:45 | PM.OP.COLON ---
Operative Date/Time/Diagnoses Date of procedure: 04/04/24 Time of procedure: 09:45 Pre-op diagnosis: Family history of colon cancer Post-op diagnosis: same Procedure & Clinicians Study performed: Colonoscopy Same procedure as scheduled: Yes Surgeon: Tres Moreno Procedure Notes Procedure in detail: Surgeon: Tres Moreno MD Anesthesia: Glenna Ventura CRNA Procedure: The patient was brought to the endoscopy suite, placed in left lateral decubitus position. The patient was connected to monitoring devices. A time-out was performed. Sedation was administered. Once the patient was adequately sedated, a digital rectal exam was performed and was normal. The scope was then inserted and advanced to the cecum where the appendiceal orifice was identified and photographed. The scope was then slowly withdrawn over greater than 6 minutes. The mucosa was thoroughly inspected. There was pandiverticulosis. The scope was retroflexed in the rectum. No other abnormalities were found. The scope was straightened and removed. The patient was awakened and brought to recovery. Scope withdrawal time: 8 minutes Sedation time: 15 minutes EBL: 0 Findings: Pandiverticulosis Post-procedure Recommendations: Colonoscopy in 5 years Disposition: PACU
[2024-04-04 09:47] VITALS: BP 101/68; PULSE 68; RESP 11; TEMP 36.3; O2SAT 96
[2024-04-04 09:52] VITALS: BP 108/77; PULSE 69; RESP 16; O2SAT 96
[2024-04-04 09:56] VITALS: BP 103/74; PULSE 76; RESP 15; O2SAT 96
[2024-04-04 10:03] VITALS: BP 115/78; PULSE 71; RESP 20; O2SAT 96
== END 2024-04-04 10:07 | disposition home or self-care (01) ==
PROVIDERS: PCP Family Medicine; Referring Provider Surgery; Visit Provider Surgery
PROC: 0DJD8ZZ Inspection of Lower Intestinal Tract, Via Natural or Artificial Opening Endoscopic (ICD-10-PCS; CPT 45378; principal; 2024-04-04 09:15)
DX: Z12.11 Encounter for screening for malignant neoplasm of colon (principal); Z80.0 Family history of malignant neoplasm of digestive organs; K57.30 Diverticulosis of large intestine without perforation or abscess without bleeding
CPT/HCPCS: G0105; J2704

== ENCOUNTER 2025-03-09 06:19 | Day surgery (SDC) | payer MEDICARE, OTHER, SELFPAY ==
[2025-03-02 13:04] VITALS: BMI 32.6
[2025-03-09 06:47] VITALS: BP 132/75; PULSE 75; RESP 16; TEMP 36.9; O2SAT 98; BMI 32.6
--- NOTE | 2025-03-09 07:07 | PM.PREOP ---
Pre-operative Note Interval Note History & Physical reviewed/Exam performed by Physician: Yes Changes to H&P: No
[2025-03-09] MEDS: LACTATED RINGERS 1,000 ML 42 ML IV (07:10)
--- NOTE | 2025-03-09 08:09 | SUR.OPER ---
Supine on padded OR bed, head on pillow, left arm secured at side on padded arm board at <90 degrees abduction, righ arm on large armboard, prepped into field legs uncrossed, safety belt at thigh, tape over blanket over lower legs.
--- NOTE | 2025-03-09 08:56 | P.OP_ITS ---
Operative Date/Time/Diagnoses Date of procedure: 03/09/25 Time of procedure: 07:45 Pre-op diagnosis: Right Ring Finger Mucous Cyst Post-op diagnosis: same Procedure & Clinicians Procedure: RIGHT Long Finger Mucous Cyst Excision and Osteophyte resection Same procedure(s) as scheduled: Yes Surgeon: Payam Pichardo Assisted?: Yes Porcelain Enamel Sprayer: Nelly Choi Anesthesia Type: General Operative Notes Findings: Finger of Mucous Cyst Excision: Right long finger Preoperative diagnosis: Mucous cyst and osteoarthritis of the Above Digits Procedure performed: Mucous Cyst Excision and Osteophyte Excision Postoperative diagnosis: Same Primary Surgeon: Payam Pichardo MD Secondary Surgeon: JOSE Conway Physician Porcelain Enamel Sprayer was used throughout the entirety of the case. ?This operation could not have been safely performed (without compromising the technical results or length of the procedure) without the assistance of a skilled surgical scrub technician. A surgical scrub technician was medically necessary for room set up, patient positioning, draping, retraction, visualization, reduction, fixation and closure. ?They were essential ?for the success of the case. Anesthesia: General EBL: 5 ml Tourniquet: 42 minutes @ 250 mmHg Indication For Surgery: Patient presented with triggering and pain of the affected digits. Conservative treatment did not improve symptoms to an acceptable level. The risks, benefits, and alternatives were discussed. Risks include pain, bleeding, infection, damage to nearby structures, tendon damage, nerve damage, blood vessel damage, wound healing complications, lack of symptom relief, need for further surgery, DVT, PE, stroke, and . Written consent was obtained. Operative Findings: Mucous Cyst originating off the DIP joint. DIP joint Osteophytes Procedure in Detail: The patient was met in the pre-operative hold area. Consent was verified and operative extremity was signed. The patient then met with anesthesia and was brought back to the operating room. The patient was placed supine on the operating table. Anesthetic was administered. The extremity was then prepped and draped in the usual sterile fashion. A timeout was performed per protocol. All were in agreement and we proceeded. A T incision was made at the level of the DIP joint overlying the affected digit. Full thickness flaps were made and retracted. The cyst and the extensor tendon was identified. The cyst was highly scarred and fibrous. It was incorporated into the extensor tendon. This was carefully dissected out and the extensor tendon remained. The collateral ligaments were identified and protected. The capsule between the extensor tendon and collateral ligaments was excised exposing the joint. The osteophytes were identified with direct visualization and fluoroscopy. The osteophytes were removed with a rongeur. He has a large posterior osteophyte where the extensor tendon attached to the distal phalanx. Some of this osteophyte was removed however a large portion of this was where the extensor tendon attached. Therefore some of that osteophyte remained in place. The joint remained stable and the extensor tendon was intact at the end of the case. The wound was irrigated copiously and closed with nylon sutures. A sterile dressing and splint was applied. Postoperative Protocol: Same day discharge Finger SPlint in place Splint to stay in place until follow up appointment Sutures out at 2 weeks Manual labor at 4-6 weeks Payam Pichardo MD Closure Type: primary Specimen(s): none sent Applied: other Estimated Blood Loss (mL): 5 Blood products transfused: none Tourniquet time (min): 42 Complications: none Post-operative Condition: stable Disposition: PACU
[2025-03-09 08:57] VITALS: BP 111/62; PULSE 78; RESP 16; TEMP 36.4; O2SAT 98
[2025-03-09 09:03] VITALS: BP 113/64; PULSE 73; RESP 16; TEMP 36.2; O2SAT 98
[2025-03-09 09:07] VITALS: BP 113/62; PULSE 73; RESP 16; TEMP 36.2; O2SAT 98
[2025-03-09 09:25] VITALS: BP 119/73; PULSE 79; RESP 18; O2SAT 98
== END 2025-03-09 09:57 | disposition home or self-care (01) ==
PROVIDERS: PCP Family Medicine; Referring Provider Orthopaedic Surgery; Visit Provider Orthopaedic Surgery
PROC: (CPT 26160; principal; 2025-03-09 07:45)
DX: M67.441 Ganglion, right hand (principal); M25.741 Osteophyte, right hand; M19.041 Primary osteoarthritis, right hand; Z87.39 Personal history of other diseases of the musculoskeletal system and connective tissue; E78.5 Hyperlipidemia, unspecified
CPT/HCPCS: 26160; J0690; J1100; J1885; J2405; J2704; J3010